=== PATIENT | female | born 1985 | race Caucasian/White ===

== ENCOUNTER 2017-11-16 16:35 | Inpatient (IN) | payer OTHER ==
[~2017-11-16] VITALS: Ht 157.5 cm; Wt 51.3 kg
[~2017-11-16 16:35] MED LIST: LASIX40 MG; LOSARTAN POTASS50 MG; NEURONTIN800 MG; NOVOLIN N100 UNITS/; PRILOSEC10 MG PO; TOUJEO SOL300 UNIT/1; TOUJEO SOL300 UNIT/1 SUBCUTANEO; VASOTEC2.5 MG; VASOTEC2.5 MG PO; ZANTAC300 MG PO; ZOCOR5 MG; ZOCOR5 MG PO
[2017-11-16] MEDS ORDERED: COZAAR100 MG (16:46)
[2017-11-16] MEDS ORDERED: HUMALOG100 UNIT/1 (16:47)
== END 2017-11-18 13:09 | disposition home or self-care (01) | DRG 700 ==
LOC: ER 16:35 → SEC-K 11-17 09:39 → MEDJ 11-17 10:38
PROC: 30233N1 Transfusion of Nonautologous Red Blood Cells into Peripheral Vein, Percutaneous Approach (ICD-10-PCS; principal; 2017-11-17)
DX: E10.22 Type 1 diabetes mellitus with diabetic chronic kidney disease (principal); I12.9 Hypertensive chronic kidney disease with stage 1 through stage 4 chronic kidney disease, or unspecified chronic kidney disease; N18.3 Chronic kidney disease, stage 3 (moderate); D63.1 Anemia in chronic kidney disease; E10.21 Type 1 diabetes mellitus with diabetic nephropathy

== ENCOUNTER 2017-12-20 12:55 | Emergency (ER) | payer OTHER ==
[~2017-12-20] VITALS: Ht 157.5 cm; Wt 53.1 kg
[~2017-12-20 12:55] MED LIST changes: +COZAAR100 MG; +HUMALOG100 UNIT/1
== END 2017-12-20 17:51 | disposition home or self-care (01) ==
LOC: ER 12:55
DX: E11.65 Type 2 diabetes mellitus with hyperglycemia (principal); N39.0 Urinary tract infection, site not specified